=== PATIENT | female | born 1995 | race American Indian/Alaskan Native ===

== ENCOUNTER 2020-07-03 02:34 | Emergency (ER) | payer SELFPAY ==
[2020-07-03 04:40] LABS: Basophils % (Auto) 0.8 % (0.0-1.8); Hematocrit 31.3 % (30.3-42.9); Hemoglobin 10.6 gm/dl (10.1-14.3); Lymphocytes # (Auto) 0.9 K/mm3 (1.2-5.4); Mean Corpuscular HGB Conc 34 % (30-34); Mean Corpuscular Volume 80 fl (79-97); Monocytes # (Auto) 0.3 K/mm3 (0.0-0.8); Monocytes % (Auto) 10.7 % (0.0-7.3); Platelet Count 174 K/mm3 (140-440); Red Blood Count 3.89 M/mm3 (3.65-5.03); Red Cell Distribution Width 14.8 % (13.2-15.2)
[2020-07-03 04:47] LABS: Blood Urea Nitrogen 16 mg/dL (7-17); Calcium 8.9 mg/dL (8.4-10.2); Hemolysis Index 4
[2020-07-03 04:48] LABS: BUN/Creatinine Ratio 40
[2020-07-03 06:11] VITALS: BP 146/94
[2020-07-03] MEDS ORDERED: dexAMETHasone 20 MG/5 ML VIAL IV ONE (06:39)
[2020-07-03] MEDS ORDERED: MORPHINE 4 MG/1 ML INJ IV ONE (06:39)
[2020-07-03] MEDS ORDERED: ONDANSETRON 4 MG/2 ML INJ IV ONE (06:39)
[2020-07-03] MEDS ORDERED: SODIUM CHLORIDE 0.9% 1000 ML 1,000 ML IV ONE (06:39)
[2020-07-03] MEDS ORDERED: KETOROLAC 30 MG/1 ML INJ IV ONE (06:39)
--- NOTE | 2020-07-03 07:04 | Emergency Department Report ---
ED General Adult HPI - General Chief complaint: Pain General Stated complaint: LUPUS PUI?: No Time Seen by Provider: 07/03/20 06:19 Source: patient Mode of arrival: Stretcher Limitations: No Limitations - History of Present Illness Initial comments: Patient is a 24-year-old F [place] female with a past medical history of lupus who is presenting with an exacerbation. Patient is on prednisone for maintenance. Patient states she is having pain all over especially her arms legs and back. Patient denies any fevers chills nausea vomiting. States she has some swelling to her hands and feet. Patient denies any injury. Pain is 8 out of 10 in severity. Severity scale (0 -10): 10 - Related Data Previous Rx's Medication Instructions Recorded Last Taken Type predniSONE [Deltasone] 10 mg PO .TAPER #21 tab 07/03/20 Unknown Rx traMADoL [Ultram] 50 mg PO Q6HR PRN #12 tablet 07/03/20 Unknown Rx Allergies Allergy/AdvReac Type Severity Reaction Status Date / Time vancomycin Allergy Hives Verified 07/03/20 03:47 ED Review of Systems ROS: Stated complaint: LUPUS Other details as noted in HPI Comment: All other systems reviewed and negative ED Past Medical Hx - Past Medical History Previous Medical History?: Yes Hx Psychiatric Treatment: Yes (Bipolar, Depression, Mood disorder) Additional medical history: LUPUS - Surgical History Past Surgical History?: Yes Additional Surgical History: Kidney Biopsy - Social History Smoking Status: Never Smoker Substance Use Type: Marijuana - Medications Home Medications: Home Medications Medication Instructions Recorded Confirmed Last Taken Type predniSONE [Deltasone] 10 mg PO .TAPER #21 tab 07/03/20 Unknown Rx traMADoL [Ultram] 50 mg PO Q6HR PRN #12 tablet 07/03/20 Unknown Rx ED Physical Exam - General Limitations: No Limitations General appearance: alert, in no apparent distress - Head Head exam: Present: atraumatic, normocephalic - Eye Eye exam: Present: normal appearance, PERRL, EOMI - ENT ENT exam: Present: mucous membranes moist - Neck Neck exam: Present: normal inspection - Respiratory Respiratory exam: Present: normal lung sounds bilaterally. Absent: respiratory distress, wheezes, rales, rhonchi - Cardiovascular Cardiovascular Exam: Present: regular rate, normal rhythm, normal heart sounds. Absent: systolic murmur, diastolic murmur, rubs, gallop - GI/Abdominal GI/Abdominal exam: Present: soft, normal bowel sounds. Absent: distended, tenderness, guarding, rebound - Extremities Exam Extremities exam: Present: normal inspection - Back Exam Back exam: Present: normal inspection - Neurological Exam Neurological exam: Present: alert, oriented X3 - Psychiatric Psychiatric exam: Present: normal affect, normal mood - Skin Skin exam: Present: warm, dry, intact, normal color. Absent: rash ED Course Vital Signs 07/03/20 07/03/20 03:48 06:10 Temperature 98.2 F Pulse Rate 72 66 Respiratory 20 17 Rate Blood Pressure 146/98 Blood Pressure 146/94 [Left] O2 Sat by Pulse 100 100 Oximetry - Reevaluation(s) Reevaluation #1: 07/03/20 08:04 Patient's pain is improved after IV hydration and pain management. Laboratory studies are within normal limits. Patient is stable for discharge. ED Medical Decision Making - Lab Data Result diagrams: 07/03/20 04:06 07/03/20 04:06 Lab Results 07/03/20 07/03/20 07/03/20 Range/Units 04:06 04:06 04:06 WBC 3.1 L (4.5-11.0) K/mm3 RBC 3.89 (3.65-5.03) M/mm3 Hgb 10.6 (10.1-14.3) gm/dl Hct 31.3 (30.3-42.9) % MCV 80 (79-97) fl MCH 27 L (28-32) pg MCHC 34 (30-34) % RDW 14.8 (13.2-15.2) % Plt Count 174 (140-440) K/mm3 Lymph % (Auto) 29.0 (13.4-35.0) % [place] % (Auto) 10.7 H (0.0-7.3) % Eos % (Auto) 1.0 (0.0-4.3) % Baso % (Auto) 0.8 (0.0-1.8) % Lymph # (Auto) 0.9 L (1.2-5.4) K/mm3 [place] # (Auto) 0.3 (0.0-0.8) K/mm3 Eos # (Auto) 0.0 (0.0-0.4) K/mm3 Baso # (Auto) 0.0 (0.0-0.1) K/mm3 Seg Neutrophils % 58.5 (40.0-70.0) % Seg Neutrophils # 1.8 (1.8-7.7) K/mm3 Sodium 136 L (137-145) mmol/L Potassium 3.4 L (3.6-5.0) mmol/L Chloride 100.8 (98-107) mmol/L Carbon Dioxide 21 L (22-30) mmol/L Anion Gap 18 mmol/L BUN 16 (7-17) mg/dL Creatinine 0.4 L (0.6-1.2) mg/dL Estimated GFR > 60 ml/min BUN/Creatinine Ratio 40 % Glucose 77 (65-100) mg/dL Calcium 8.9 (8.4-10.2) mg/dL HCG, Qual Negative (Negative) Critical care attestation.: If time is entered above; I have spent that time in minutes in the direct care of this critically ill patient, excluding procedure time. ED Disposition Clinical Impression: Lupus Disposition: DC- TO HOME OR SELFCARE Is pt being admited?: No Does the pt Need Aspirin: No Condition: Stable Referrals: CASSIE LOPEZ MD [Primary Care Provider] - 3-5 Days Time of Disposition: 08:05
== END 2020-07-03 08:25 | disposition home or self-care (01) ==
LOC: ED 02:34
DX: A18.4 Tuberculosis of skin and subcutaneous tissue (principal); F31.9 Bipolar disorder, unspecified; F32.89 Other specified depressive episodes; F12.10 Cannabis abuse, uncomplicated
CPT/HCPCS: 36415; 80048; 84703; 85025; 96361; 96374; 96375; 99284; J1100; J1885; J2270; J2405; J7030